=== PATIENT | female | born 1955 | race African-American/Black ===

== ENCOUNTER → 2016-11-17 | Outpatient (CLI) | payer OTHER ==
[2015-09-08 11:00] VITALS: BP 107/52
[~2016-11-17] MED LIST: ASPI-612 PO; ATOR20TA58 PO; CARV3.122 PO; CARV6.252 PO; ESOM40CA PO; FERR325T58 PO; FURO20TA3 PO; FURO40TA4 PO; HYDR-2867 PO; ISOS30TA4 PO; LISI-338 PO; METO25TA4 PO; METO50TA2 PO; NITR0.4T SL; POTA20TA4 PO; SPIR25TA3 PO
--- NOTE | 2016-11-17 11:41 | CARD ---
APPROVED REPORT EXAM: Two-dimensional and M-mode echocardiogram with Doppler and color Doppler. Other Information Quality : Good INDICATION Congestive Heart Failure Surgery/Intervention ICD/Pacemaker: 2D DIMENSIONS RVDd3.1 (2.9-3.5cm)Left Atrium(2D)3.9 (1.6-4.0cm) IVSd1.1 (0.7-1.1cm)Aortic Root(2D)2.9 (2.0-3.7cm) LVDd5.1 (3.9-5.9cm)LVOT Diameter2.4 (1.8-2.4cm) PWd1.1 (0.7-1.1cm)LVDs4.2 (2.5-4.0cm) FS (%) 20.0 %SV45.5 ml LVEF(%)40.0 (>50%) Aortic Valve AoV Peak Wagner.174.4cm/sAoV VTI38.6cm AO Peak GR.12.2mmHgLVOT Peak Wagner.91.1cm/s LVOT VTI 20.82cmAO Mean GR.7mmHg KOTA (VMAX)2.65xw4AVG (VTI)2.40cm2 AI P 1/2 Ssgb464vu Mitral Valve MV E Ozfstcso17.5cm/sMV DECEL [id number] MV A Dctrvyct11.1cm/sMV EQU73xd E/A Ratio0.9MVA (PHT)3.36cm2 TDI E/Lateral E'10.1E/Medial E'13.1 Tricuspid Valve TR P. Umshavvw544rq/sRAP BACZFUGC6gqCu TR Peak Gr.84ymKuUABH35dgWx Pulmonary Vein S1 Iwovnjzk83.4cm/sD2 Gkrcvnij67.0cm/s LEFT VENTRICLE The left ventricle is normal size. There is normal left ventricular wall thickness. Left ventricle sy stolic function is mildly impaired. The Ejection Fraction is 40-45%. Mild global hypokinesis with wal l motion consistent with conduction defect. Transmitral Doppler flow pattern is Grade I-abnormal rela xation pattern. RIGHT VENTRICLE The right ventricle is normal size. The right ventricular systolic function is normal. ATRIA The left atrium size is normal. The right atrium size is normal. The interatrial septum is intact wit h no evidence for an atrial septal defect or patent foramen ovale as noted on 2-D or Doppler imaging. AORTIC VALVE The aortic valve is normal in structure and function. Doppler and Color Flow revealed mild aortic reg urgitation. There is no significant aortic valvular stenosis. MITRAL VALVE The mitral valve is calcified but opens well. There is no evidence of mitral valve prolapse. There is no mitral valve stenosis. Doppler and Color-flow revealed mild mitral regurgitation. TRICUSPID VALVE The tricuspid valve is normal in structure and function. Doppler and Color Flow revealed physiologica l tricuspid regurgitation. The PA pressure was estimated at 20 mmHg. There is no tricuspid valve sten osis. PULMONIC VALVE Doppler and Color Flow revealed mild pulmonic valvular regurgitation. There is no pulmonic valvular s tenosis. GREAT VESSELS The aortic root is normal in size. The ascending aorta is normal in size. The IVC is normal in size a nd collapses >50% with inspiration. PERICARDIAL EFFUSION There is no evidence of significant pericardial effusion. Critical Notification Critical Value: No <Conclusion> Left ventricle systolic function is mildly impaired. The Ejection Fraction is 40-45%. Mild global hypokinesis with wall motion consistent with conduction defect. Doppler and Color Flow revealed mild aortic regurgitation.
== END | disposition home or self-care (01) ==
LOC: ECHO 09:53
PROVIDERS: ATTEND Internal Medicine Cardiovascular Disease
DX: I08.3 Combined rheumatic disorders of mitral, aortic and tricuspid valves (principal); I50.22 Chronic systolic (congestive) heart failure
CPT/HCPCS: 93306

== ENCOUNTER 2017-10-07 13:39 | Emergency (ER) | payer OTHER ==
[2017-10-07 14:58] LABS: ADD MAN DIFF? NO
[2017-10-07] MEDS: IV NORMAL SALINE 1000ML BAG 1,000 ML IV (15:00)
[2017-10-07 15:05] LABS: BASO # 0.1 x10^3/uL (0.0-0.2); BASO % 1 % (0-3); EOS # 0.2 x10^3/uL (0.0-0.7); EOS % 4 % (0-3); HEMATOCRIT 38.4 % (36.0-47.0); HEMOGLOBIN 12.6 g/dL (12.0-15.5); LYMPH # 0.8 x10^3/uL (1.0-4.8); LYMPH % 15 % (24-48); MEAN CORPUSCULAR HEMOGLOBIN 27 pg (25-35); MEAN CORPUSCULAR HGB CONC 33 g/dL (31-37); MEAN CORPUSCULAR VOLUME 83 fL (79-100); MONO # 0.5 x10^3/uL (0.0-1.1); MONO % 9 % (0-9); NEUT % 72 % (31-73); PLATELET COUNT 222 x10^3/uL (140-400); RED BLOOD COUNT 4.66 x10^6/uL (3.50-5.40); WHITE BLOOD COUNT 5.5 x10^3/uL (4.0-11.0)
[2017-10-07 15:21] LABS: TROPONINI < 0.017 ng/mL (0.000-0.055)
[2017-10-07 15:24] LABS: ALBUMIN 3.3 g/dL (3.4-5.0); ALBUMIN/GLOBULIN RATIO 0.8 (1.0-1.7); ALK PHOS 64 U/L (46-116); ALT (SGPT) 25 U/L (14-59); ANION GAP 9 (6-14); AST (SGOT) 22 U/L (15-37); BLOOD UREA NITROGEN 9 mg/dL (7-20); BUN/CREATININE RATIO 10 (6-20); CARBON DIOXIDE 28 mmol/L (21-32); CHLORIDE 104 mmol/L (98-107); CREATININE 0.9 mg/dL (0.6-1.0); GFR 77.3; GLUCOSE 119 mg/dL (70-99); MAGNESIUM 1.7 mg/dL (1.8-2.4); POTASSIUM 3.8 mmol/L (3.5-5.1); SODIUM 141 mmol/L (136-145); TOTAL BILIRUBIN 0.4 mg/dL (0.2-1.0); TOTAL PROTEIN 7.6 g/dL (6.4-8.2)
[2017-10-07 15:25] LABS: CKMB INDEX 0.7 % (0-4); CKMB MASS 0.8 ng/mL (0.0-3.6); CREATINE KINASE 123 U/L (26-192)
[2017-10-07 15:25] LABS: NT-PRO BNP 248 pg/mL (0-124)
== END 2017-10-07 16:31 | disposition home or self-care (01) ==
LOC: ER 13:39
DX: R42 Dizziness and giddiness (principal); R07.89 Other chest pain; E86.0 Dehydration; E78.00 Pure hypercholesterolemia, unspecified; I10 Essential (primary) hypertension; K21.9 Gastro-esophageal reflux disease without esophagitis; Z95.0 Presence of cardiac pacemaker; Z88.5 Allergy status to narcotic agent
CPT/HCPCS: 36415; 80053; 82553; 83735; 83880; 84484; 85025; 93005; 96360; 99285-25; J7030

== ENCOUNTER → 2019-08-22 | Outpatient (CLI) | payer OTHER ==
[2017-10-07 13:43] VITALS: BP 183/80
[~2019-08-22] MED LIST changes: +CARV3.1210 PO; -CARV3.122 PO; +CARV6.2511 PO; -CARV6.252 PO; -METO50TA2 PO; +METO50TA6 PO; -NITR0.4T SL; +NITR0.4T24 SL; -SPIR25TA3 PO; +SPIR25TA5 PO
--- NOTE | 2019-08-22 13:36 | RAD ---
EXAM: Nuclear gastric emptying scan. HISTORY: Early satiety. COMPARISON: None. TECHNIQUE: Serial static images were obtained over the stomach following oral administration of 1.8 mCi of 99m-Tc sulfur colloid in an egg based meal. FINDINGS: The stomach empties into the small bowel without evidence of reflux in the area of the esophagus. The estimated time for half emptying of gastric contents, i.e. 'gastric emptying time' is 114 minutes (normal is 66 +/- 22 minutes). There is 65 percent retained tracer activity within stomach at one hour, 49 percent retained tracer activity within stomach at 2 hours, 27 percent retained tracer activity within stomach at 3 hours, and 8 percent retained tracer activity within the stomach at 4 hours. IMPRESSION: Delayed gastric emptying. The gastric emptying half-time is 114 minutes. Electronically signed by: Ivis Villarreal MD (08/22/2019 1:33 PM) [facility]
== END | disposition home or self-care (01) ==
LOC: NM 08:26
PROVIDERS: ATTEND Internal Medicine Gastroenterology
DX: K30 Functional dyspepsia (principal); R68.81 Early satiety
CPT/HCPCS: 78264; A9541

== ENCOUNTER 2019-09-10 19:27 | Emergency (ER) | payer OTHER ==
[~2019-09-10] VITALS: Ht 165.1 cm; Wt 90.0 kg
[~2019-09-10 19:27] MED LIST changes: -ASPI-612 PO; +ASPI-886 PO
[2019-09-10 19:51] VITALS: BP 152/69
[2019-09-10 20:20] LABS: BASO # 0.1 x10^3/uL (0.0-0.2); BASO % 1 % (0-3); EOS # 0.3 x10^3/uL (0.0-0.7); EOS % 5 % (0-3); HEMATOCRIT 37.8 % (36.0-47.0); HEMOGLOBIN 12.6 g/dL (12.0-15.5); LYMPH # 1.1 x10^3/uL (1.0-4.8); LYMPH % 18 % (24-48); MEAN CORPUSCULAR HEMOGLOBIN 27 pg (25-35); MEAN CORPUSCULAR HGB CONC 33 g/dL (31-37); MEAN CORPUSCULAR VOLUME 82 fL (79-100); MONO # 0.7 x10^3/uL (0.0-1.1); MONO % 12 % (0-9); NEUT % 65 % (31-73); PLATELET COUNT 228 x10^3/uL (140-400); RED BLOOD COUNT 4.63 x10^6/uL (3.50-5.40); RED CELL DISTRIBUTION WIDTH 14.7 % (11.5-14.5); WHITE BLOOD COUNT 6.2 x10^3/uL (4.0-11.0)
[2019-09-10 20:31] LABS: POTASSIUM 3.7 mmol/L (3.5-5.1)
--- NOTE | 2019-09-10 20:34 | RAD ---
AP chest. HISTORY: Chest pain AP view was taken of the chest. There is a pacemaker on the left with 3 pacing leads. The atrial lead appears to be positioned differently which could be an artifact or related to rotation of the heart. The right diaphragm it's much more elevated on the current study compared to the old exam. There are no new infiltrates. There is no pleural effusion. IMPRESSION: 1. Probable rotation of the heart versus change in the appearance of the atrial lead. 2. Elevated right diaphragm. 3. No acute infiltrates. Electronically signed by: Micah Lambert MD (09/10/2019 8:31 PM) [facility]
[2019-09-10 20:36] LABS: ALBUMIN 3.7 g/dL (3.4-5.0); TOTAL BILIRUBIN 0.3 mg/dL (0.2-1.0); TOTAL PROTEIN 7.4 g/dL (6.4-8.2)
[2019-09-10] MEDS ORDERED: CYCL10TA2 PO (21:05)
--- NOTE | 2019-09-10 21:05 | PHYS DOC ---
Past Medical History Past Medical History: Cancer, GERD, High Cholesterol, Hypertension, Other Additional Past Medical Histor: BREAST CANCER Past Surgical History: Pacemaker, Other Additional Past Surgical Histo: Lumpectomy, LEFT WRIST CARPAL TUNNEL RELEASE Smoking Status: Never Smoker Alcohol Use: None Drug Use: None General Adult EDM: Chief Complaint: CHEST PAIN HPI: HPI: Patient is a 64 year oldlnw-sntr-izb female past medical history hypertension with a defibrillator in place presents with a chief complaint of left-sided chest discomfort. Patient states discomfort is been ongoing for 2 weeks. Discomfort is on and off. She describes a sensation in her left chest breast area as a pulling sensation or a heaviness. She denies any associated shortness of breath nausea vomiting. Patient denies defibrillator discharge. Patient states she has an appointment with her kids club attendant on Sunday. Review of Systems: Review of Systems: Constitutional: Denies fever or chills. [] Eyes: Denies change in visual acuity. [] HENT: Denies nasal congestion or sore throat. [] Respiratory: Denies cough or shortness of breath. [] Cardiovascular: Positive chest pain GI: Denies abdominal pain, nausea, vomiting, bloody stools or diarrhea. [] : Denies dysuria. [] Musculoskeletal: D positive chest wall pain Integument: Denies rash. [] Neurologic: Denies headache, focal weakness or sensory changes. [] Endocrine: Denies polyuria or polydipsia. [] Lymphatic: Denies swollen glands. [] Psychiatric: Denies depression or anxiety. [] Heart Score: HEART Score for Chest Pain: HEART Score for Chest Pain Response (Comments) Value History Slighlty/Non-Suspicious 0 ECG Nonspecific Repolarizatio 1 Age >45 - < 65 1 Risk Factors 1 or 2 Risk Factors 1 Troponin < Normal Limit 0 Total 3 Risk Factors: Risk Factors: DM, Current or recent (<one month) smoker, HTN, HLP, family history of CAD, obesity. Risk Scores: Score 0 - 3: 2.5% MACE over next 6 weeks - Discharge Home Score 4 - 6: 20.3% MACE over next 6 weeks - Admit for Clinical Observation Score 7 - 10: 72.7% MACE over next 6 weeks - Early Invasive Strategies Allergies: Allergies: Allergies Coded Allergies Type Severity Reaction Last Updated Verified diphenhydramine Allergy Intermediate 09/07/15 Yes Physical Exam: PE: Constitutional: Well developed, well nourished, no acute distress, non-toxic appearance. [] HENT: Normocephalic, atraumatic, bilateral external ears normal, oropharynx moist, no oral exudates, nose normal. [] Eyes: PERRLA, EOMI, conjunctiva normal, no discharge. [] Neck: Normal range of motion, no tenderness, supple, no stridor. [] Cardiovascular:Heart rate regular rhythm, no murmur [] Lungs & Thorax: Bilateral breath sounds clear to auscultation [] Abdomen: Bowel sounds normal, soft, no tenderness, no masses, no pulsatile masses. [] Skin: Warm, dry, no erythema, no rash. [] Back: No tenderness, no CVA tenderness. [] Extremities: No tenderness, no cyanosis, no clubbing, ROM intact, no edema. [] Neurologic: Alert and oriented X 3, normal motor function, normal sensory function, no focal deficits noted. [] Psychologic: Affect normal, judgement normal, mood normal. [] Current Patient Data: Labs: Laboratory Tests Test 09/10/19 20:10 White Blood Count 6.2 x10^3/uL (4.0-11.0) Red Blood Count 4.63 x10^6/uL (3.50-5.40) Hemoglobin 12.6 g/dL (12.0-15.5) Hematocrit 37.8 % (36.0-47.0) Mean Corpuscular Volume 82 fL (79-100) Mean Corpuscular Hemoglobin 27 pg (25-35) Mean Corpuscular Hemoglobin Concent 33 g/dL (31-37) Red Cell Distribution Width 14.7 % (11.5-14.5) H Platelet Count 228 x10^3/uL (140-400) Neutrophils (%) (Auto) 65 % (31-73) Lymphocytes (%) (Auto) 18 % (24-48) L Monocytes (%) (Auto) 12 % (0-9) H Eosinophils (%) (Auto) 5 % (0-3) H Basophils (%) (Auto) 1 % (0-3) Neutrophils # (Auto) 4.0 x10^3/uL (1.8-7.7) Lymphocytes # (Auto) 1.1 x10^3/uL (1.0-4.8) Monocytes # (Auto) 0.7 x10^3/uL (0.0-1.1) Eosinophils # (Auto) 0.3 x10^3/uL (0.0-0.7) Basophils # (Auto) 0.1 x10^3/uL (0.0-0.2) Sodium Level 139 mmol/L (136-145) Potassium Level 3.7 mmol/L (3.5-5.1) Chloride Level 103 mmol/L (98-107) Carbon Dioxide Level 28 mmol/L (21-32) Anion Gap 8 (6-14) Blood Urea Nitrogen 14 mg/dL (7-20) Creatinine 1.0 mg/dL (0.6-1.0) Estimated GFR (Cockcroft-Gault) 68.0 BUN/Creatinine Ratio 14 (6-20) Glucose Level 110 mg/dL (70-99) H Calcium Level 9.0 mg/dL (8.5-10.1) Total Bilirubin 0.3 mg/dL (0.2-1.0) Aspartate Amino Transferase (AST) 22 U/L (15-37) Alanine Aminotransferase (ALT) 24 U/L (14-59) Alkaline Phosphatase 57 U/L (46-116) Troponin I Quantitative < 0.017 ng/mL (0.000-0.055) Total Protein 7.4 g/dL (6.4-8.2) Albumin 3.7 g/dL (3.4-5.0) Albumin/Globulin Ratio 1.0 (1.0-1.7) Laboratory Tests 09/10/19 20:10 Laboratory Tests 09/10/19 20:10 Vital Signs: Vital Signs Date Time Temp Pulse Resp B/P (MAP) Pulse Ox O2 Delivery O2 Flow Rate FiO2 09/10/19 19:51 98.7 76 16 152/69 (96) 98 Room Air 98.7 EKG: EKG: EKG time 1937 heart rate 80 sinus rhythm left axis deviation nonspecific intraventricular block no ST elevation no ST depression no acute [place] [] Radiology/Procedures: Radiology/Procedures: [] Impression: IMPRESSION: 1. Probable rotation of the heart versus change in the appearance of the atrial lead. 2. Elevated right diaphragm. 3. No acute infiltrates. Electronically signed by: Micah Lambert MD (09/10/2019 8:31 PM) [facility] Course & Med Decision Making: Course & Med Decision Making Pertinent Labs and Imaging studies reviewed. (See chart for details) [] Patient was evaluated for chief complaint. Work-up consisted of laboratory analysis radiologic imaging and EKG. Results reviewed and discussed with patient. Patient will be discharged home with prescription for Flexeril. Patient advised to follow-up with her kids club attendant on Sunday. Do suspect patient's pain is not cardiac. EKG and troponin within normal limits. Dragon Disclaimer: Dragon Disclaimer: This electronic medical record was generated, in whole or in part, using a voice recognition dictation system. Departure Departure Impression: Primary Impression: Chest wall pain Disposition: HOME, SELF-CARE Condition: STABLE Referrals: [facility] (PCP) Patient Instructions: Chest Pain (Nonspecific), Chest Wall Pain Scripts Cyclobenzaprine Hcl (CYCLOBENZAPRINE HCL) 10 Mg Tablet 1 TAB PO TID, #20 TAB Prov: SUZAN YANCEY I DO 09/10/19 Justicifation of Admission Dx: Justifications for Admission: Justification of Admission Dx: N/A SUZAN YANCEY I DO Sep 10, 2019 21:05
--- NOTE | 2019-09-11 07:31 | EKG ---
[facility] [address] [place] [address] Test Date: 2019-09-10 Test Time: 19:38:20 Pat Name: PATTY AMAYA Department: Room: Gender: F Network Architect: TERESSA : 1955 Requested By: SUZAN YANCEY Order Number: [id number] Reading MD: Measurements Intervals [place] Rate: 80 P: 41 SC: 180 QRS: -65 QRSD: 130 T: 62 QT: 398 QTc: 463 Interpretive Statements SINUS RHYTHM ABNORMAL LEFT AXIS DEVIATION NON SPECIFIC INTRAVENTRICULAR BLOCK ABNORMAL ECG RI6.01 No previous ECG available for comparison
== END 2019-09-10 22:08 | disposition home or self-care (01) ==
LOC: ER 19:27
DX: R07.89 Other chest pain (principal); R20.0 Anesthesia of skin; K21.9 Gastro-esophageal reflux disease without esophagitis; E78.00 Pure hypercholesterolemia, unspecified; I10 Essential (primary) hypertension; Z85.9 Personal history of malignant neoplasm, unspecified; Z95.0 Presence of cardiac pacemaker; Z98.890 Other specified postprocedural states; Z88.8 Allergy status to other drugs, medicaments and biological substances
CPT/HCPCS: 36415; 71045; 80053; 84484; 85025; 93005; 99285

== ENCOUNTER → 2019-10-03 | Outpatient (CLI) | payer OTHER ==
[2019-09-10 19:51] VITALS: BP 152/69
[~2019-10-03] MED LIST changes: +CYCL10TA2 PO
--- NOTE | 2019-10-03 16:23 | CARD ---
MR#: [id number] Date of Study: 10/03/2019 Ordering Physician: JULIOCESAR ABURTO, Referring Physician: JULIOCESAR ABURTO, Tech: Samantha Acosta RDCS APPROVED REPORT EXAM: Two-dimensional and M-mode echocardiogram with Doppler and color Doppler. Other Information Quality : Good Technically limited study due to body habitus. INDICATION Non-Ischemic Cardiomyopathy, Pacemaker/ICD 2D DIMENSIONS RVDd3.2 (2.9-3.5cm)Left Atrium(2D)3.5 (1.6-4.0cm) IVSd1.0 (0.7-1.1cm)Aortic Root(2D)2.7 (2.0-3.7cm) LVDd4.9 (3.9-5.9cm)LVOT Diameter2.2 (1.8-2.4cm) PWd1.0 (0.7-1.1cm)LVDs3.7 (2.5-4.0cm) FS (%) 23.6 %SV52.2 ml LVEF(%)47.0 (>50%) Aortic Valve AoV Peak Wagner.163.8cm/sAoV VTI27.1cm AO Peak GR.10.7mmHgLVOT Peak Wagner.86.5cm/s LVOT VTI 16.19cmAO Mean GR.6mmHg KOTA (VMAX)1.28bv2JVC (VTI)2.22cm2 AI P 1/2 Ledj351il Mitral Valve MV E Mvscmlje37.7cm/sMV DECEL LAEX128kr MV A Tkbnafxq38.3cm/sMV PSH84tb E/A Ratio0.8MVA (PHT)7.42cm2 TDI E/Lateral E'11.3E/Medial E'12.9 Pulmonary Vein S1 Rrxikrgf63.0cm/sD2 Mgezkvbv91.7cm/s LEFT VENTRICLE The left ventricle is normal size. There is normal left ventricular wall thickness. The left ventricu lar systolic function is normal and the ejection fraction is within normal range. The Ejection Fracti on is 55%. Apical motion consistent with pacemaker activation. Otherwise, grossly normal wall motion. Transmitral Doppler flow pattern is Grade I-abnormal relaxation pattern. RIGHT VENTRICLE The right ventricle is normal size. The right ventricular systolic function is normal. There is a pac emaker lead in the right ventricle. ATRIA The left atrium size is normal. The right atrium size is normal. A pacemaker is seen in the right atr ium consistent with history. The interatrial septum is intact with no evidence for an atrial septal d efect or patent foramen ovale as noted on 2-D or Doppler imaging. AORTIC VALVE The aortic valve is calcified but opens well. Doppler and Color Flow revealed mild aortic regurgitati on. There is no significant aortic valvular stenosis. MITRAL VALVE The mitral valve is calcified but opens well. There is no evidence of mitral valve prolapse. There is no mitral valve stenosis. Doppler and Color-flow revealed trace mitral regurgitation. TRICUSPID VALVE The tricuspid valve is normal in structure and function. Doppler and Color Flow revealed no tricuspid valve regurgitation noted. There is no tricuspid valve stenosis. PULMONIC VALVE The pulmonic valve is not well visualized. Doppler and Color Flow revealed trace pulmonic valvular re gurgitation. There is no pulmonic valvular stenosis. GREAT VESSELS The aortic root is normal in size. The ascending aorta is normal in size. The IVC is normal in size a nd collapses >50% with inspiration. PERICARDIAL EFFUSION There is no evidence of significant pericardial effusion. Critical Notification Critical Value: No <Conclusion> The left ventricular systolic function is normal and the ejection fraction is within normal range. Th e Ejection Fraction is 55%. Apical motion consistent with pacemaker activation. Otherwise, grossly normal wall motion. There is a pacemaker lead in the right ventricle. Doppler and Color Flow revealed mild aortic regurgitation. Signed by : Benedict Frey, Electronically Approved : 10/03/2019 16:22:45
== END | disposition home or self-care (01) ==
LOC: ECHO 08:35
PROVIDERS: ATTEND Internal Medicine Cardiovascular Disease
DX: I08.0 Rheumatic disorders of both mitral and aortic valves (principal); I42.9 Cardiomyopathy, unspecified; Z95.0 Presence of cardiac pacemaker
CPT/HCPCS: 93306